=== PATIENT | male | born 1995 | race Caucasian/White ===

== ENCOUNTER → 2019-04-07 | Outpatient (CLI) | payer OTHER ==
[~2019-04-07] MED LIST: MULT-516 PO
[2019-04-07 09:01] LABS: MICROSCOPIC NOT IND
== END | disposition home or self-care (01) ==
LOC: STAR 07:56 → MERGE 08:30
PROVIDERS: ATTEND Urology
DX: Z01.818 Encounter for other preprocedural examination (principal); I86.1 Scrotal varices
CPT/HCPCS: 81003; 87086

== ENCOUNTER 2019-04-15 11:26 | Day surgery (SDC) | payer OTHER ==
[~2019-04-15] VITALS: Ht 180.3 cm; Wt 31.7 kg
[~2019-04-15 11:26] MED LIST changes: +BUPIVACAINE/PF 0.25% ONE
[2019-04-15] MEDS ORDERED: LACTATED RINGERS 1,000 ML IV SCH (11:34)
[2019-04-15 11:54] VITALS: BP 129/83
[2019-04-15] MEDS ORDERED: GLYCOPYRROLATE 0.2MG/1ML, 5ML ONE (12:02)
[2019-04-15] MEDS ORDERED: ROPIvacaine/PF 0.5%, 30 ML ONE (12:02)
[2019-04-15] MEDS ORDERED: ROCURONIUM 10MG/ML,5ML ONE (12:02)
[2019-04-15] MEDS ORDERED: DEXAMETHASONE 4 MG/ML, 1ML ONE (12:02)
[2019-04-15] MEDS ORDERED: PROPOFOL 10 MG/ML, 20ML ONE (12:02)
[2019-04-15] MEDS ORDERED: MIDAZOLAM 1 MG/ML, 5ML ONE (12:03)
[2019-04-15] MEDS ORDERED: FENTANYL PF 250 MCG/5ML ONE (12:03)
[2019-04-15] MEDS ORDERED: HYDROmorphone 1 MG/ML, 1ML INJ IV PRN (12:30)
[2019-04-15] MEDS ORDERED: KETOROLAC 30 MG/1 ML IV PRN (12:30)
[2019-04-15] MEDS ORDERED: MIDAZOLAM 1 MG/ML, 2ML IV PRN (12:30)
[2019-04-15] MEDS ORDERED: METOCLOPRAMIDE 5 MG/ML, 2ML IV PRN (12:30)
[2019-04-15] MEDS ORDERED: ONDANSETRON 2MG/ML, 2ML IVPush PRN (12:30)
[2019-04-15] MEDS ORDERED: HYDROcodone/APAP 7.5-325MG/15ML UDC PO PRN (12:30)
[2019-04-15] MEDS ORDERED: OXYcodone 5 MG/5 ML ORAL.SOL UDC PO PRN (12:30)
[2019-04-15] MEDS ORDERED: MEPERIDINE/PF 25MG/0.5ML IVPush PRN (12:30)
[2019-04-15] MEDS ORDERED: FENTANYL PF 100 MCG/2ML IV PRN (12:30)
[2019-04-15] MEDS ORDERED: LABETALOL 5MG/ML, 20ML IV PRN (12:30)
[2019-04-15] MEDS ORDERED: CEFAZOLIN 1,000 MG ONE (12:47)
[2019-04-15] MEDS ORDERED: LIDOCAINE-MPF 2% ,5ML ONE (12:47)
[2019-04-15] MEDS ORDERED: BUPIVACAINE/PF 0.25% INFIL ONE (13:12)
[2019-04-15] MEDS ORDERED: OXYcodone 5 MG/5 ML ORAL.SOL UDC ONE (15:36)
[2019-04-15] MEDS ORDERED: FENTANYL PF 100 MCG/2ML ONE (15:38)
== END 2019-04-15 17:40 | disposition home or self-care (01) ==
LOC: OUT 11:26
PROVIDERS: ATTEND Urology
DX: I86.1 Scrotal varices (principal); F17.200 Nicotine dependence, unspecified, uncomplicated
CPT/HCPCS: 55530; J0690; J1100; J2250; J2704; J2795; J3010; J3490